=== PATIENT | female | born 1930 | race Caucasian/White ===

== ENCOUNTER 2017-05-07 23:10 | Inpatient (IN) | payer MEDICARE ==
[~2017-05-07] VITALS: Ht 172.7 cm; Wt 68.1 kg
[~2017-05-07 23:10] MED LIST: ALBU8.5H2 IH; AMLO-39 PO; ASCO100089 PO; ATOR80TA PO; CALC-190 PO; FLUT9.9S NS; HYG25 PO; ISOS120T6 PO; LEVO50CA2 PO; LISI-571 PO; METO25TA99 PO; MONT10TA23 PO; MULT-666 PO; NITR0.4T SL; NORT10CA PO; PANT40TA3 PO; TRAM50TA2 PO; UBID100C25 PO
[2017-05-07 23:22] VITALS: BP 198/81; PULSE 90; RESP 16; O2SAT 94
[2017-05-08] VITALS (12 sets, daily range): BP systolic 155–173; BP diastolic 47–69; PULSE 61–83; RESP 16–20; O2SAT 95–100
--- NOTE | 2017-05-08 00:21 | ED.REPORT ---
HPI-Fever Date of Service May 08, 2017 ED Provider: Osmar Carvalho DO Patient is an 86 year old female with a history of [place] with multiple cardiac stents, CAD, CABG and hypertension who presents to the ED due to a fever. Associated symptoms include global weakness and difficulty walking due to the weakness. She also complains of constipation. The patient reports that she fell a month ago and has wounds on her right lower extremity that has been being taken care of 3x a week at wound care. The patient denies abdominal pain or diarrhea. Per the patient's , the patient was not this weak yesterday. Nursing Notes Stated Complaint: FEVER Chief Complaint: General Complaint Nursing Notes Reviewed: Yes Allergies: Coded Allergies: Sulfa (Sulfonamide Antibiotics) (Verified Allergy, Severe, 09/16/15) meclizine (Verified Allergy, Severe, 09/16/15) meperidine HCl (Verified Allergy, Severe, 09/16/15) Scheduled Amlodipine (Norvasc) 5 Mg Tablet 5 MG PO DAILY Ascorbic Acid (Vitamin C) 1,000 Mg Tab.chew 1,000 MG PO HS Atorvastatin (Lipitor) 80 Mg Tablet 80 MG PO DAILY Calcium Carb&Cit/Mag12/Vit D3 (Calcium 500 mg Tablet) 1 Each Tablet 1 EACH PO DAILY Chlorthalidone (Chlorthalidone) 25 Mg Tablet 25 MG PO HS Isosorbide MN ER (Isosorbide MN ER) 120 Mg Tab.er.24h 120 MG PO DAILY Levothyroxine (Tirosint) 50 Mcg Capsule 50 MCG PO DAILY Lisinopril (Lisinopril) 5 Mg Tablet 10 MG PO DAILY Metoprolol Succinate ER (Metoprolol Succinate ER) 25 Mg Tab.er.24h 25 MG PO DAILY Montelukast (Montelukast) 10 Mg Tablet 10 MG PO HS Nortriptyline (Nortriptyline) 10 Mg Capsule 20 MG PO QID Pantoprazole DR (Pantoprazole DR) 40 Mg Tablet.dr 40 MG PO DAILY Ubidecarenone (Co Q-10) 100 Mg Capsule 100 MG PO DAILY Scheduled PRN Albuterol HFA (Proair HFA) 8.5 Gm Hfa.aer.ad 2 PUFFS IH Q4-6H PRN PRN For Shortness of Breath Nitroglycerin SL (Nitrostat) 0.4 Mg Tab.subl 0.4 MG SL Q5MIN PRN PRN For Chest Pain Tramadol (Tramadol) 50 Mg Tablet 25 MG PO Q6 PRN PRN For Pain Miscellaneous Medications Fluticasone Propionate (Flonase Allergy Relief) 50 Mcg/Actuation Huntley.susp 9.9 ML NS Multivitamin (Once Daily) 1 Each Tablet 1 EACH PO General Time Seen by MD: 00:20 Chief Complaint Recent fever Hx Obtained From: Patient Arrived By: Walk-in Onset Occurred: 5 - 8 hours ago Recent Healthcare: No recent hospitalization, Recent doctor visit Similar Sx Previous: No Past Medical History Past Medical History Unstable angina, status post left heart catheterization, status post drug-coated stent placement to the right coronary artery February 2014 Chronic anemia. Chronic renal insufficiency. Reports: Coronary artery disease, GERD, Hyperlipidemia, Hypertension Past Surgical History Multiple cardiac stents (8) Reports: CABG Family History Reviewed, not relevant Smoking History Former Smoker Social History Alcohol Use: Denies alcohol use Drug Use: Denies drug use Other Social History: Ambulatory Status Cane Review of Systems Constitutional: Reports: Chills, Fever, Weakness - generalized Respiratory: Denies: Non-productive cough, Shortness of breath GI: Reports: Constipation, Denies: Abdominal pain, Diarrhea Neurologic: Reports: Problem walking, Denies: Numbness Complete sys rev & neg: except as marked. Physical Exam Initial Vital Signs Vital Signs (First) Date Time Temp Pulse Resp B/P Pulse Ox O2 Delivery O2 Flow Rate FiO2 05/07/17 23:22 37.4 90 16 198/81 94 Room Air Initial VS: Reviewed General/Constitutional: Awake, Alert globally weak Neck: Atraumatic, Supple Respiratory / Chest: Atraumatic, No respiratory distress rales in the left upper chest Cardiovascular: Heart rate NL, Regular rhythm systolic ejection murmur Skin: Atraumatic, Color NL, No rash, Warm, Dry Neurologic: Oriented X3, Speech NL, No motor deficits, No sensory deficits Abdomen: Atraumatic, Soft, Non-tender LOWER EXTREMITIES: healing wounds on lower extermity, no signs of cellulitis Psychiatric: Affect NL, Mood NL Interpretation & Diagnostics Lab Results Interpretation Result Diagram: 05/08/17 0056 05/08/17 0056 Test 05/08/17 00:56 05/08/17 01:35 White Blood Count 22.3th/mm3 (3.8-10.1) Red Blood Count 3.61mil/mm3 (3.90-5.20) Hemoglobin 10.9g/dL (12.0-15.6) Hematocrit 32.3% (35.0-46.0) Mean Corpuscular Volume 89.5fL (81-100) Mean Corpuscular Hemoglobin 30.2pg (27.0-35.0) Mean Corpuscular Hemoglobin Concent 33.7% (32.0-37.0) Red Cell Distribution Width 16.4% (12.3-15.4) Platelet Count 237bil/L (150-400) Neutrophils (%) (Auto) 90.0% (40-74) Lymphocytes (%) (Auto) 2.3% (14-46) Monocytes (%) (Auto) 6.8% (4-12) Eosinophils (%) (Auto) 0.1% (0-5) Basophils (%) (Auto) 0.1% (0-3) Sodium Level 125mEq/L (134-144) Potassium Level 3.2mEq/L (3.5-5.2) Chloride Level 85mEq/L (97-108) Carbon Dioxide Level 20mmol/L (18-29) Blood Urea Nitrogen 20mg/dL (8-27) Creatinine 1.02mg/dL (0.57-1.00) Estimat Glomerular Filtration Rate 73mL/min (>59) Glucose Level 138mg/dL (60-99) Lactic Acid Level 1.5mmol/L (0.4-2.0) Calcium Level 9.3mg/dL (8.5-10.1) Magnesium Level 1.6mg/dL (1.6-2.6) Total Bilirubin 0.4mg/dL (0.0-1.2) Aspartate Amino Transf (AST/SGOT) 32U/L (0-50) Alanine Aminotransferase (ALT/SGPT) 18U/L (0-32) Alkaline Phosphatase 92U/L (25-165) Troponin T 0.018ug/L (0.0-0.011) Pro-B-Type Natriuretic Peptide 1145pg/mL (0-738) Total Protein 8.6g/dL (6.4-8.4) Albumin 3.8g/dL (3.4-5.0) Lipase 22U/L (13-60) Procalcitonin 0.41ng/mL (0.00-0.08) Urine Color Yellow (YELLOW) Urine Appearance Clear (CLEAR,HAZY) Urine pH 6.0 (5.0-8.0) Urine Specific [place] 1.010 (1.003-1.035) Urine Protein Negativemg/dL (NEG,TRACE) Urine Glucose (UA) Negativemg/dL (NEGATIVE) Urine Ketones Negativemg/dL (NEGATIVE) Urine Occult Blood Small (NEGATIVE) Urine Nitrite Negative (NEGATIVE) Urine Bilirubin Negative (NEGATIVE) Urine Urobilinogen Normalmg/dL (NORMAL) Urine Leukocyte Esterase Negative (NEGATIVE) Urine RBC 3-10/hpf (0-2) Urine WBC 0-5/hpf (0-5) Urine Epithelial Cells Occasional/hpf (NONE-MOD) Urine Crystals None seen (NONE SEEN) Urine Bacteria None/hpf (NONE-FEW) Urine Hyaline Casts None/lpf (NONE) Urine Granular Casts None seen (NONE SEEN) Urine Waxy Casts None seen (NONE SEEN) Urine Red Blood Cell Casts None seen (NONE SEEN) Urine White Blood Cell Casts None seen (NONE SEEN) Urine Mucus None seen (None Seen) Urine Trichomonas None seen (NONE SEEN) Urine Yeast None (NONE SEEN) Urinalysis Comment None Urine Culture Reflexed Not indicated ECG Interpretation ECG Interpretation: T wave inversion in V4, V5 and V6 no prior EKG for comparison Interpreted by: ED physician Normal ECG Interpretation: Normal rate (90), Normal sinus rhythm X-Ray Chest Interpretation Chest Xray Interpretation: left retrocardiac infiltrate View: Portable, 1 view Interpretation / Wet Read by: Wet read ED physician Re-Eval/Medical Decision Med Decision/Clinical Course This is an acutely ill 78-year-old female who presents with a 102.7 fever and global weakness. She was so weak that he literally had to lift her from a wheelchair and put her into the gurney. She is found have crackles in left base and diffuse global weakness. She has a healing wound of her right anterior carlos and this certainly did not look infected. Sepsis workup was initiated. EKG was sinus tachycardia. T wave inversion laterally but no ST depression or ST elevation. White blood cell count is markedly elevated at 22, 000. Pro-calcitonin elevated at 0.41 troponins elevated. Chest x-ray is suspicious for a left-sided pneumonia. She is hypokalemic with a potassium of roughly 3 and hyponatremia with a sodium in the 120s. Plan: IV antibiotics for healthcare associated pneumonia because she lives in some sort of progressive care facility. IV fluid resuscitation, potassium replacement and careful sodium replacement. Aspirin for the non-STEMI and trend her enzymes. She is completely pain-free so I expect that this is a stress related event. Plan for progressive care admission. Re-Evaluation/Progress : Time of Eval: 01:56 Re-Evaluation/Progress Note: Discussed results and plan for admit. Patient understands and agrees to plan. All questions were addressed. Counseled Regarding: Diagnosis, Lab results, Need for admission Discharge & Departure Impression: Primary Impression: Pneumonia Pneumonia type: due to unspecified organism Laterality: left Lung location : unspecified part of lung Qualified Code: J18.9 - Pneumonia, unspecified organism Additional Impressions: NSTEMI (non-ST elevated myocardial infarction) Hyponatremia Hypokalemia Weakness Leukocytosis Leukocytosis type: unspecified Qualified Code: D72.829 - Elevated white blood cell count, unspecified Disposition: ADMITTED TO HOSPITAL Discharge Condition All VS Reviewed: Yes Condition: Stable Referrals: Wallace Hitchcock MD (PCP) Donald Attestation Portions of this note were transcribed by Adrienne Dempsey. I, Dr. Carvalho personally performed the history, physical exam and medical decision-making; I reviewed and confirmed the accuracy of the information in the transcribed note. Signed by: Donald Goodwin, 05/08/17 and 0100 copies to: Wallace Hitchcock MD, Todd P DO May 08, 2017 00:21 Keira Dempsey May 08, 2017 00:34
[2017-05-08 01:06] LABS: BASOPHILS % (AUTO) 0.1 % (0-3); EOSINOPHILS % (AUTO) 0.1 % (0-5); MONOCYTES % (AUTO) 6.8 % (4-12); Mean Corpuscular Hemoglobin 30.2 pg (27.0-35.0); Mean Corpuscular Volume 89.5 fL (81-100); Platelet Count 237 bil/L (150-400)
[2017-05-08] MEDS ORDERED: Piperacillin-Tazo 3.375 Gm Inj 3.375 GM in Dextrose 5% Minibag Plus 50 ML IV ONE (01:15)
[2017-05-08 01:49] LABS: APPEARANCE,URINE CLEAR (CLEAR,HAZY); COLOR,URINE YELLOW (YELLOW); OCCULT BLOOD,URINE SMALL (NEGATIVE); UROBILINOGEN,URINE NORMAL (NORMAL)
[2017-05-08 01:55] LABS: Magnesium 1.6 mg/dL (1.6-2.6); TROPONIN T 0.018 ug/L (0.0-0.011)
[2017-05-08] MEDS ORDERED: levoFLOXacin Inj 750 MG in IV Premix 1 EACH IV ONE (02:05)
[2017-05-08] MEDS ORDERED: Potassium Chloride Inj 20 MEQ in Dextrose 5% 250 ML IV ONE (02:05)
[2017-05-08] MEDS ORDERED: 0.9% Sodium Chloride 1,000 ML IV ONE (02:10)
[2017-05-08] MEDS ORDERED: Potassium Chloride 20 mEq/15 mL 15mL Oral Soln PO ONE (02:15)
[2017-05-08] MEDS ORDERED: Ondansetron 2 mg/mL 2 mL Inj IVPUSH PRN ×2 (03:00→03:15)
[2017-05-08] MEDS ORDERED: Alum-Mag Hydrox-Simeth 30 mL Suspension PO PRN ×2 (03:00→03:15)
[2017-05-08] MEDS ORDERED: Polyethylene Glycol (PEG) 17 Gm Powder PO PRN (03:15)
[2017-05-08] MEDS: 0.9% Sodium Chloride 1,000 ML IV SCH ×2 (04:04→12:26)
--- NOTE | 2017-05-08 04:36 | PCM.HPMED ---
Subjective Date of Service May 08, 2017 Primary Provider: Admitting Physician: Anjana Rosa DO Primary Care Physician: Wallace Hitchcock MD Attending Physician: Anjana Rosa DO Chief Complaint: Weakness History of Present Illness: Pt is a 86y/o female with past medical history of CKD, DMT2, Afib, CAD with previous CABG and stents X8, and h/o DVTs presented to the ED with weakness with associated chills onset yesterday afternoon. Pt was sitting on porch yesterday afternoon when she began to have chills and "did not feel right ". Pt is a resident at [facility] and lives with her . Family is at bedside and states she "felt warm" yesterday, but denies any recorded temperature. Patient denies any fevers, cough, nausea, vomiting, or diarrhea. Reports she has constipation, for which she takes Miralax. Patient has had no recent sick contacts. Pt normally ambulates with a walker at baseline. In ED patient was given Zosyn 3.375mg IV, NS fluids, and KCl 40meq PO due to potassium of 3.2. Patient is admitted to medicine team for probable pneumonia with a leukocyte count of 22. Review of Systems: ROS is negative unless otherwise noted above. Allergies Coded Allergies: Sulfa (Sulfonamide Antibiotics) (Verified Allergy, Severe, 09/16/15) meclizine (Verified Allergy, Severe, 09/16/15) meperidine HCl (Verified Allergy, Severe, 09/16/15) Home Medications Cymbalta 60mg QD Lyrica 50mg TID Amlodipine 5mg QD Atorvastatin 10mg QD Chlorthalidone 25mg QD Isosorbide ER 120mg QD Lisinopril 10mg QD Metoprolol Succinate 50mg 1/2tab BID Montelukast 10mg QD Nortriptyline HCl 10mg x2 QD Pantoprazole 40mg BID PMH CAD, Constipation, Anemia, CKD Stage III, Anemia, Primary osteoarthritis, Essential HTN, CABG with stents x8, A fib, Cataracts, CHF, Diverticulitis, GERD , recurrent UTIs, Hyperlipidemia Surgical History CABG stents x8, Hysterectomy, Breast Biopsy, Bladder Suspension Social History Hx Alcohol Use: Yes (Occasional) Hx Substance Use: No Hx Tobacco Use: No Smoking Status: Former Smoker Living Arrangement: with Family (at [facility]) Exam Vital Signs Vital Sign - Last Date Time Temp Pulse Resp B/P Pulse Ox O2 Delivery O2 Flow Rate FiO2 05/08/17 03:24 37.1 74 19 172/69 97 Room Air Intake and Output 05/07/17 05/07/17 05/08/17 Cumulative From/Thru 15:00 23:00 07:00 05/07/17 23:22 - 05/08/17 03:23 Intake Total 1000 ml 1000 ml Balance 1000 ml 1000 ml Intake IV Total 1000 ml 1000 ml Exam Patient is a pleasant 86y/o female in no acute distress who is cooperative and conversive HEENT: EOMI, Moist oral mucosa NECK: supple and nontender CARDIOVASCULAR: RRR without murmur, no edema LUNGS: clear to auscultation, no wheeze, rales, or rhonchi ABDOMEN: soft nontender MUSCULOSKELETAL: Moves all four extremities appropriately NEURO: No focal deficits; SKIN: Warm, dry PSYCH: Appropriate mood and affect Lab and Diagnostics Labs UA Protein negative Glucose negative Bacteria Negative Occult Blood small amount Result Diagram: 05/08/17 0056 05/08/17 0056 Assessment & Plan Pt is a 86y/o female with past medical history of CKD, DMT2, Afib, CAD with previous CABG and stents X8, and h/o DVTs presented to the ED with weakness with associated chills onset yesterday afternoon. Patient is admitted to medicine team for probable pneumonia with a leukocyte count of 22. Hospital Day 1 1. Leukocytosis, acute, present on admission. Under evaluation -On admit: WBC 22.3; PCT 0.41 -In ED, given Zosyn, Levaquin; will continue with ceftriaxone, azithro, vanco -CXR suggestive of PNA; also consider infection secondary to lower extremity wounds -Blood Cx obtained; pending -Strep pneu Ag, Legionella Ag, Resp PCR, sputum Cx, MRSA screen ordered; repeat PCT -2VW CXR if patient tolerates in am with assistance -Treat underlying cause(s) 2. Hypokalemia, chronicity unknown, present on admission. Under evaluation -On admit: K 3.2 -40mEq given in ED -Monitor, am labs -Replace prn 3. Atrial fibrillation not on snf anticoagulation, chronic. Presumed stable -Evidenced on EKG on admission -Tele/monitor -Resume home meds: ASA, CCB, beta virgilio 4. Asymptomatic euvolemic hyponatremia, chronicity unknown, present on admission. Under evaluation -On admit: Na 125; [employer] 12/2016 Na 134 -May be secondary to duloxetine -Monitor for sx; consider cessation of SSRI 5. Elevated troponin, likely acute, present on admission. Monitor -On admit: 0.018 -May be secondary to underlying infection, CKD, cardiac demand ischemia -Trend - 6. Hypertension, chronic. Active -Elevated reading in ED: 198/81; trended down to 161/47 -Increase likely secondary to suspected underlying illness, anxiety -Monitor and resume home medications 7. Chronic kidney disease. Presumed stable -On admit: Cr 1.02; [employer] 12/2016 Cr 1.11; baseline approx. 1.1-1.2 -Monitor 8. CAD s/p CABG, chronic. Presumed stable -ECHO 08/2014: EF55, LV normal size/function; RV normal size/function; LA dilated; mild-mod MR, mild AR -Continue home statin, beta virgilio, ASA, CCB 9. Bilateral lower extremity neuropathy, chronic. Presumed stable -Pt followed by [facility] rheumatology, neurology -Known h/o polio, OA, motor neuropathy, venous insufficiency, spinal stenosis -Resume home dose Lyrica -PT evaluation 10. Diabetes mellitus, type 2 non-insulin using, chronic. Presumed stable -A1c 08/2015: 6.3 -Due to pts age, risk of hypoglycemic events, and unlikelihood of progression of secondary effects, no medications ordered at this time -Encourage healthy diet 11. Constipation, chronic. Presumed stable -Schedule softeners/bowel meds DVT: Heparin q8 SQ GI: None Diet: Heart healthy PRN: Fever/bowel/pain/nausea IVF: NS 100 Code: DNR/DNIPt family agrees to provide POLST in am Patient status: Due to presenting symptoms, risk of adverse events, and likely course of care, anticipated LOS > 2 midnights; pt admitted as inpatient status Simón Delgadillo DO May 08, 2017 04:13 Josy Dawkins DO May 08, 2017 04:14
[2017-05-08] MEDS ORDERED: cefTRIAXone Inj 2,000 MG in Dextrose 5% Minibag Plus 50 ML IV SCH (05:00)
--- NOTE | 2017-05-08 05:56 | NUR ---
Admission note Pt arrived from ER to [facility] # [id number] apporx at 0320. Admission assessment and screening completed. No acute distress noted. POC discussed and reviewed with pt and spouse. They verbalize understating. No overt complications noted.
--- NOTE | 2017-05-08 06:00 | NUR ---
[facility] She has chronic venous stasis ulcers to LE. She has right lateral carlos open area. Mepilex foam border dressing applied. Wound consult ordered.
[2017-05-08] MEDS: Vancomycin Inj 1,000 MG in IV Premix 1 EACH IV SCH (06:39)
--- NOTE | 2017-05-08 06:47 | PCM.CONPHA ---
Subjective Date of Service: May 08, 2017 Requesting Provider: Simón Delgadillo DO Weakness History of Present Illness possible pneu, and infection of lower extremity wounds Reason for Pharmacy Consult: Vancomycin Dosing Objective Assessment/Plan Assessment/Plan A/ - 86 y/o female patient admitted in for suspected pneumonia and infection of lower extremity wounds that required Vancomycin therapy for empirical coverage - Afebrile, WBC: 22.3, Blood cultures (x2), MRSA screen, sputum, virus PCR pending - In Ed, she received Zosyn and Levaquin once, then switched to Rocephin and azithromycin po - Wt: 74.6kg, ht: 172.7cm, SCr: 1.02 mg/dL (CKD stage III @ baseline), estimated clearance ~ 40 ml/min, t1/2~18 hrs, Vd~48 L P/ - Give Vancomycin 1G iv q24h, no loading dose. Trough level ordered before 3rd dose @0430 on 05/10 Pharmacy will continue to monitor and make necessary adjustment Thank you for consulting clinical pharmacy in the care of this patient Cory Muro May 08, 2017 06:47
[2017-05-08] MEDS: DULoxetine 30 mg DR Capsule PO SCH (08:26)
[2017-05-08] MEDS: MeTOProlol XL 25 mg ER24 Tablet PO SCH ×2 (08:26→21:38)
[2017-05-08] MEDS: Isosorbide Mononitrate 60 mg ER24 Tablet PO SCH (08:26)
[2017-05-08] MEDS: Heparin 5,000 Unit/mL Inj SUBQ SCH ×3 (08:26→23:43)
[2017-05-08] MEDS ORDERED: Vancomycin Dose per Pharmacist XX SCH (08:30)
[2017-05-08 08:49] LABS: BASOPHILS % (AUTO) 0.1 % (0-3); EOSINOPHILS % (AUTO) 0 % (0-5); MONOCYTES % (AUTO) 5.9 % (4-12); Mean Corpuscular Hemoglobin 29.6 pg (27.0-35.0); Mean Corpuscular Volume 88.8 fL (81-100); NEUTROPHILS % (AUTO) 89.8 % (40-74); Platelet Count 183 bil/L (150-400)
[2017-05-08 09:08] LABS: INR 1.01 ratio
--- NOTE | 2017-05-08 10:15 | DRSVH ---
PROCEDURE: X-RAY CHEST ONE VIEW, PORTABLE ([id number]) INDICATIONS: fever, unable to bear weight due to weakness TECHNIQUE: One view of the chest was acquired. COMPARISON: [facility], CR, XR CHEST 1VW (PORTABLE), 09/15/2015, 11:03. FINDINGS: Surgical changes and devices: Postsurgical changes are redemonstrated in the mediastinum. Lungs and pleura: There is blunting of the left costophrenic angle again noted consistent with a quality assurance monitor chassis misha small pleural effusion versus pleural thickening. There are linear opacities in the lung bases l ikely representing atelectasis. Mediastinum: A moderate-sized hiatal hernia is is redemonstrated. Heart size is enlarged. Bones and chest wall: No suspicious bony lesions. Overlying soft tissues appear unremarkable. IMPRESSION: 1. Blunting of the left costophrenic angle consistent with a chronic pleural effusion versus pleural thickening. 2. Bibasilar linear opacities likely representing atelectasis. 3. Moderate size hiatal hernia again noted. Dictated by: Hu Yen M.D. on 05/08/2017 at 10:06 Approved by: Hu Yen M.D. on 05/08/2017 at 10:08
--- NOTE | 2017-05-08 15:54 | NUR ---
Social Work: Multidisciplinary Rounds Pt discussed in am rounds. Pt is not medically stable for discharge at this time. Pt lives in [place] at [facility]. Unknown if pt is in the independent or assisted living side. Order placed to coordinate with [facility]. ENTEROSTOMAL THERAPY NURSE acknowledges MD order however Case management will not see the patient today due to high census. Will attempt to complete assessment tomorrow. ROYAL Thapa
--- NOTE | 2017-05-08 17:00 | NUR ---
Activity Patient able to assist with turns. Has not ambulated yet. Denies any pain when turning. Performs active ROM exercises.
[2017-05-08] MEDS ORDERED: Potassium Chloride 20 mEq SR Tablet PO ONE (19:20)
[2017-05-08] MEDS ORDERED: Magnesium Sulf 2 Gm/50mL Water 2 GM in IV Premix 1 EACH IV ONE (19:20)
--- NOTE | 2017-05-08 19:25 | PCM.PNMED ---
Subjective Date of Service May 08, 2017 Subjective Ms. Rocio Willson is a very pleasant 86 year old lady with past medical history of CKD, DMT2, Afib, CAD with previous CABG and stents X8, and h/o DVTs presented to the ED with weakness with associated chills onset yesterday afternoon. Pt was sitting on porch yesterday afternoon when she began to have chills and "did not feel right". Pt is a resident at [facility] and lives with her . Family is at bedside and states she "felt warm" yesterday, but denies any recorded temperature. Patient denies any fevers, cough, nausea, vomiting, or diarrhea. Reports she has constipation, for which she takes Miralax. Patient has had no recent sick contacts. Pt normally ambulates with a walker at baseline. In ED patient was given Zosyn 3.375mg IV, NS fluids, and KCl 40meq PO due to potassium of 3.2. Patient is admitted to medicine team for probable pneumonia with a leukocyte count of 22. Overnight -no overnight events. Today - Patient feels great! Denies all symptoms. Has no complaints. Exam Vital Signs Vital Sign - Last Date Time Temp Pulse Resp B/P Pulse Ox O2 Delivery O2 Flow Rate FiO2 05/08/17 05:21 71 05/08/17 03:24 37.1 19 172/69 97 Room Air Intake and Output 05/07/17 05/07/17 05/08/17 Cumulative From/Thru 15:00 23:00 07:00 05/07/17 23:22 - 05/08/17 06:04 Intake Total 1324 ml 1324 ml Output Total 100 ml 100 ml Balance 1224 ml 1224 ml Intake Oral 0 ml 0 ml IV Total 1324 ml 1324 ml Output Urine Total 100 ml 100 ml # Voids 1 1 # Bowel Movements 0 0 Exam General: No acute distress, well-developed, well-nourished, appropriately interactive HEENT: Normocephalic, atraumatic. External ears without defect. Pupils equal, round, and reactive to light and accommodation. Anicteric sclerae, moist conjunctivae, and no lid lag. Oropharynx free of erythema and cobble stoning with moist mucosa. Neck: Supple with full range of motion. No jugular venous distension. No bruits. No lymphadenopathy or thyromegaly. Cardiovascular: Regular rate and rhythm with no murmurs, rubs, or gallops appreciated Pulmonary: Clear to auscultation bilaterally with no crackles, wheezes, or rhonchi. Normal respiratory effort with no use of accessory muscles. Abdomen: Bowel tones present. Soft, nontender, nondistended. No hepatosplenomegaly or masses appreciated. Extremities: No clubbing, cyanosis, edema, or lymphadenopathy appreciated. Skin: Normal temperature, turgor, and texture; no rash, Right lower extremity ulcer with superficial oozing present, or subcutaneous nodules appreciated. Neurological: Cranial nerves grossly intact. Normal muscle strength, tone, and bulk. Reflexes, coordination, and sensory function within normal limits. No known gait impairment. Psychiatric: Normal mood and affect. Alert and oriented to person, place, and time. IVs and Medications Medications Reviewed: Medications were reviewed in detail Lab and Diagnostics Result Diagram: 05/08/17 0056 05/08/17 0056 Assessment & Plan Pt is a 86y/o female with past medical history of CKD, DMT2, Afib, CAD with previous CABG and stents X8, and h/o DVTs presented to the ED with weakness with associated chills onset yesterday afternoon. Pt was sitting on porch yesterday afternoon when she began to have chills and "did not feel right ". Pt is a resident at [facility] and lives with her . Family is at bedside and states she "felt warm" yesterday, but denies any recorded temperature. Patient denies any fevers, cough, nausea, vomiting, or diarrhea. Reports she has constipation, for which she takes Miralax. Patient has had no recent sick contacts. Pt normally ambulates with a walker at baseline. Leukocytosis, acute, present on admission. Under evaluation - On admit: WBC 22.3; with 90% diff. - In ED, given Zosyn, Levaquin; received vanc, ceftriaxone and azithro. Will switch to Vanc / Zosyn. - CXR suggestive of PNA; also consider infection secondary to lower extremity wounds - Blood Cx obtained; pending - Strep pneu Ag, Legionella Ag, Resp PCR, sputum Cx, MRSA screen ordered; all negative or pending. - Will cx RLE wound tomorrow. - Procalcitonin 0.41, and 0.97 on repeat. Hypokalemia, chronicity unknown, present on admission. Active. - On admit: K 3.2, Mag 1.6. - Replete as needed. Atrial fibrillation not on fdc anticoagulation, chronic. Presumed stable -Evidenced on EKG on admission -Tele/monitor -Resume home meds: ASA, CCB, beta virgilio Asymptomatic euvolemic hyponatremia, chronicity unknown, present on admission. Under evaluation -On admit: Na 125; NextGen 12/2016 Na 134 -May be secondary to duloxetine -Monitor for sx; consider cessation of SSRI Elevated troponin, likely acute, present on admission. Monitor -On admit: 0.018 -May be secondary to underlying infection, CKD, cardiac demand ischemia -Trend - Hypertension, chronic. Active -Elevated reading in ED: 198/81; trended down to 161/47 -Increase likely secondary to suspected underlying illness, anxiety -Monitor and resume home medications Chronic kidney disease. Presumed stable -On admit: Cr 1.02; NextGen 12/2016 Cr 1.11; baseline approx. 1.1-1.2 -Monitor CAD s/p CABG, chronic. Presumed stable -ECHO 08/2014: EF55, LV normal size/function; RV normal size/function; LA dilated; mild-mod MR, mild AR -Continue home statin, beta virgilio, ASA, CCB Bilateral lower extremity neuropathy, chronic. Presumed stable -Pt followed by [facility] rheumatology, neurology -Known h/o polio, OA, motor neuropathy, venous insufficiency, spinal stenosis -Resume home dose Lyrica -PT evaluation Diabetes mellitus, type 2 non-insulin using, chronic. Presumed stable -A1c 08/2015: 6.3 -Due to pts age, risk of hypoglycemic events, and unlikelihood of progression of secondary effects, no medications ordered at this time -Encourage healthy diet Constipation, chronic. Presumed stable -Schedule softeners/bowel meds Patient status: Due to presenting symptoms, risk of adverse events, and likely course of care, anticipated LOS > 2 midnights; pt admitted as inpatient status Pain Evaluation: Adequate Pain Control Resuscitation Status: DNR/DNI:Do Not Resuscitate/Intubate Attending Statement The patient was seen and examined together with Dr. Mcclelland on 05/08/2017 and I agree with the history, exam and plan as outlined in the note above. . MCCREFUGIO PARK DO May 08, 2017 06:29 Edmund Liang MD May 09, 2017 09:21
[2017-05-08] MEDS ORDERED: PREG50CA PO (19:51)
[2017-05-08] MEDS ORDERED: DULO60CA42 PO (19:51)
[2017-05-08] MEDS: Piperacillin-Tazo 3.375 Gm Inj 3.375 GM in Dextrose 5% Minibag Plus 50 ML IV SCH (21:39)
[2017-05-09] VITALS (7 sets, daily range): BP systolic 134–182; BP diastolic 63–74; PULSE 60–86; RESP 16–20; O2SAT 96–99
[2017-05-09] MEDS: 0.9% Sodium Chloride 1,000 ML IV SCH ×2 (00:57→09:14)
[2017-05-09 03:45] LABS: BASOPHILS % (AUTO) 0.1 % (0-3); EOSINOPHILS % (AUTO) 3.8 % (0-5); Mean Corpuscular Hemoglobin 29.5 pg (27.0-35.0); Mean Corpuscular Volume 87.7 fL (81-100); NEUTROPHILS % (AUTO) 78.5 % (40-74); Platelet Count 198 bil/L (150-400)
[2017-05-09] MEDS: Vancomycin Inj 1,000 MG in IV Premix 1 EACH IV SCH (04:07)
[2017-05-09] MEDS ORDERED: Potassium Chloride Inj 20 MEQ in Dextrose 5% 250 ML IV ONE (05:05)
[2017-05-09] MEDS: Piperacillin-Tazo 3.375 Gm Inj 3.375 GM in Dextrose 5% Minibag Plus 50 ML IV SCH ×3 (05:30→20:39)
--- NOTE | 2017-05-09 06:03 | NUR ---
potassium/magnesium at start of shift order to give 2gm IV rider of mag and 20mEq KCL po, gave this morning labs potassium 3.0 called MD about maybe starting magnesium/potassium protocol ordered 20mEq IV potassium instead, IV rider running.
--- NOTE | 2017-05-09 06:04 | NUR ---
pain pt c/o pain in her back and legs, tylenol, elevation, repostiting and ice helping to control pain
[2017-05-09] MEDS: Isosorbide Mononitrate 60 mg ER24 Tablet PO SCH (07:30)
[2017-05-09] MEDS: DULoxetine 30 mg DR Capsule PO SCH (10:06)
[2017-05-09] MEDS: MeTOProlol XL 25 mg ER24 Tablet PO SCH ×2 (10:06→20:38)
[2017-05-09] MEDS: Heparin 5,000 Unit/mL Inj SUBQ SCH ×3 (10:12→23:50)
[2017-05-09] MEDS ORDERED: NS IV SCH ×2 (10:30)
[2017-05-09] MEDS ORDERED: VANCOMYCIN IV SCH ×2 (10:30)
[2017-05-09] MEDS ORDERED: Potassium Chloride Inj 30 MEQ in Dextrose 5% 500 ML IV ONE (10:45)
[2017-05-09] MEDS ORDERED: Heparin 5,000 Unit/mL Inj SUBQ SCH (10:50)
--- NOTE | 2017-05-09 11:21 | NUR ---
Social Work: Initial Assessment/Multidisciplinary Rounds D/A: EMR reviewed. Pt was discussed in AM rounds this morning. Pt is low risk for readmission with risk score of 1. Rocio Melchor is a 86 year old female admitted on05/08/2017 for pneumonia and weakness. Per MD in Multidisciplinary rounds, pt is getting closer to being medically ready for discharge. SW met with pt at bedside to discuss discharge planning, SW role explained and Discharge Planning Checklist booklet provided. Pt has [facility] [place] [employer] insurance and sees Wallace Hitchcock MD for primary care. Pt lives at [facility] where she is independent with ADL's but she and her do receive meals from the community and have someone help with cleaning around the house. Pt drives and uses a FWW for ambulation at baseline. Per Pt, she has not been out of bed during this hospitalization but plans to ambulate with RN today. SW does not have HH or SNF hx. Pt does not have VA benefits but does have LTC insurance. Pt has DPOA/AD paperwork completed. SW requested a copy when possible. SW spoke with Rodney from [facility] who confirmed that pt is on the independent side of the facility and does not require a bedside assessment to return. Pt explained her son will transport her back to [facility] when medically ready. Pt denies any other needs. No MD orders at this time. SW to continue to follow for pt needs or MD orders. Plan: Anticipated discharge home to [facility] when medically ready. Pt denies any other needs. No MD orders at this time. SW to continue to follow for pt needs or MD orders. ROYAL Zuleta Addendum: 05/09/17 at 1129 by LINDA JOHNSON Amended: Links added.
[2017-05-09] MEDS ORDERED: Potassium Chloride 20 mEq SR Tablet PO ONE (14:50)
--- NOTE | 2017-05-09 15:59 | NUR ---
HTN Blood pressure 170's systolic. MD notified. Increased back pain, giving PO tylenol. Potassium 3.0, giving potassium rider slowly r/t burning at IV site.
--- NOTE | 2017-05-09 17:19 | NUR ---
Wound Note Wound orders for right lower leg wound received, pt seen at bedside. Patient has a history of venous stasis and was referred to wound center by Bhumi COTTON but was hospitalized for other reasons prior to that visit. Patient presents with a non healing right lateral leg ulcer, measuring 1.5 cm x 0.2 cm with a depth of 0.2 cm and tunnels superiorly 1.5 cm. Wound was cleaned with a curette and was then wrapped with kerlix and coban, will change dressing on Tuesday and patient will follow up at the wound center on discharge. Wound may need to be opened superiorly in the future.
--- NOTE | 2017-05-09 17:59 | PCM.PNMED ---
Subjective Date of Service May 09, 2017 Subjective Lalito Melchor is an 86 year old lady with past medical history of CKD, DMT2, Afib, CAD with previous CABG and stents X8, and h/o DVTs presented to the ED with weakness with associated chills onset on 05/07/17. Pt was sitting on porch yesterday afternoon when she began to have chills and "did not feel right ". Pt is a resident at [facility] and lives with her . Family is at bedside and states she "felt warm" yesterday, but denies any recorded temperature. Patient denies any fevers, cough, nausea, vomiting, or diarrhea. She is admitted to the hospital for the treatment of her pneumonia. Overnight Events: Low Potassium, replaced with potassium chloride. Today, Lalito is resting in bed comfortably and in no acute distress. She mentions she did have some shortness of breath and some left sided chest pain while lying down which lasted only a few minutes until she received pain medication. She has not had a repeat episode. She denies fevers, chills, headache, nausea, vomiting, abdominal pain or diarrhea. Exam Vital Signs Vital Sign - Last Date Time Temp Pulse Resp B/P Pulse Ox O2 Delivery O2 Flow Rate FiO2 05/09/17 16:09 36.6 72 20 182/67 99 Room Air Intake and Output 05/08/17 05/08/17 05/09/17 Cumulative From/Thru 15:00 23:00 07:00 05/07/17 23:22 - 05/09/17 06:16 Intake Total 1892 ml 2135 ml 5351 ml Output Total 100 ml Balance 1892 ml 2135 ml 5251 ml Intake Oral 800 ml 820 ml 1620 ml IV Total 1092 ml 1315 ml 3731 ml Output Urine Total 100 ml # Voids 2 5 7 15 # Bowel Movements 1 2 3 Exam General: No acute distress, well-developed, well-nourished, appropriately interactive HEENT: Normocephalic, atraumatic. External ears without defect. Anicteric sclerae, moist conjunctivae, and no lid lag. Oropharynx free of erythema and cobble stoning with moist mucosa. Neck: Supple with full range of motion. No jugular venous distension. No bruits. No lymphadenopathy or thyromegaly. Cardiovascular: Regular rate and rhythm with no murmurs, rubs, or gallops appreciated Pulmonary: Clear to auscultation bilaterally with no crackles, wheezes, or rhonchi. Normal respiratory effort with no use of accessory muscles. Abdomen: Bowel tones present. Soft, nontender, nondistended. No hepatosplenomegaly or masses appreciated. Extremities: No clubbing, cyanosis, edema, or lymphadenopathy appreciated. Skin: Normal temperature, turgor, and texture; no rash, Right lower extremity ulcer with superficial oozing present, or subcutaneous nodules appreciated. Neurological: Cranial nerves grossly intact. Normal muscle strength, tone, and bulk. Reflexes, coordination, and sensory function within normal limits. No known gait impairment. Psychiatric: Normal mood and affect. Alert and oriented to person, place, and time. Lab and Diagnostics Item Value Date Time Sodium Level 134 mEq/L 05/09/17 031 Potassium Level 3.0 mEq/L L 05/09/17 031 Potassium Level 3.3 mEq/L L 05/09/17 0830 Chloride Level 95 mEq/L L 05/09/17 031 Carbon Dioxide Level 22 mmol/L 05/09/17 0310 Blood Urea Nitrogen 12 mg/dL 05/09/17 0310 Creatinine 0.73 mg/dL 05/09/17 0310 Estimat Glomerular Filtration Rate 108 mL/min 05/09/17 0310 Glucose Level 109 mg/dL H 05/09/17 0310 Procalcitonin 0.96 ng/mL H 05/09/17 0310 Result Diagram: 05/09/1730905/09/17 0830 Microbiology MRSA - Not detected Strep Pneumo - Negative Legionella Negative Blood Cultures negative x 24 hours Microbiology ADENOVIRUS RESPIRATORY PCR Final 05/09/17 Not Detected CORONOVIRUS 229E Final 05/09/17 Not Detected CORONOVIRUS HKU1 Final 05/09/17 Not Detected CORONOVIRUS NL63 Final 05/09/17 Not Detected CORONOVIRUS OC43 Final 05/09/17 Not Detected INFLUENZA A PCR Final 05/09/17 Not Detected INFLUENZA B PCR Final 05/09/17 Not Detected METAPNEUMOVIRUS PCR Final 05/09/17 Not Detected RHINOVIRUS OR ENTEROVIRUS PCR Final 05/09/17 Not Detected PARAINFLUENZA 1 PCR Final 05/09/17-1201 Not Detected PARAINFLUENZA 2 PCR Final 05/09/17-1201 Not Detected PARAINFLUENZA 3 PCR Final 05/09/17-1201 Not Detected PARAINFLUENZA 4 PCR Final 05/09/17-1201 Not Detected CONTINUED ON NEXT PAGE RUN DATE: 05/09/17 [facility] LIVE PAGE 2 RUN TIME: 1203 Specimen Inquiry PHYSICIAN Patient: LALITO MELCHOR [id number] (Continued) Specimen: [id number] Collected: 05/09/17 Received: 05/09/17-1039 (Continued) Procedure Result Verified Site RESP SYNCYTIAL VIRUS PCR Final 05/09/17-1201 Not Detected Microbiology (Continued) CHLAMDOPHILIA PNEUMONIAE PCR Final 05/09/17-1201 Not Detected MYCOPLASMA PNEUMONIAE PCR Final 05/09/17-1201 MYCO PNEUMONIAE PCR Not Detected Reference Interval Not Detected X-Rays, CTs and MRIs PROCEDURE: X-RAY CHEST ONE VIEW, PORTABLE ([id number]) IMPRESSION: 1. Blunting of the left costophrenic angle consistent with a chronic pleural effusion versus pleural thickening. 2. Bibasilar linear opacities likely representing atelectasis. 3. Moderate size hiatal hernia again noted. Dictated and approved by: Hu Yen M.D. on 05/08/2017 at 10:06 12-lead ECG EKG 05/09/17 Normal sinus rhythm EKG 05/08/17 Atrial Fibrillation Assessment & Plan Pt is a 86y/o female with past medical history of CKD, DMT2, Afib, CAD with previous CABG and stents X8, and h/o DVTs presented to the ED with weakness with associated chills onset yesterday afternoon. Pt was sitting on porch yesterday afternoon when she began to have chills and "did not feel right ". Pt is a resident at [facility] and lives with her . Family is at bedside and states she "felt warm" yesterday, but denies any recorded temperature. Patient denies any fevers, cough, nausea, vomiting, or diarrhea. Reports she has constipation, for which she takes Miralax. Patient has had no recent sick contacts. Pt normally ambulates with a walker at baseline. Leukocytosis, acute, present on admission. Improving - On admit: WBC 22.3; with 90% diff. - In ED, given Zosyn, Levaquin; received vanc, ceftriaxone and azithro. Patient currently on zosyn. Vancomycin discontinued after negative MRSA swab. - CXR suggestive of PNA; also consider infection secondary to lower extremity wounds - Blood Cultures negative x 24 hours. - Strep pneu Ag, Legionella Ag, Resp PCR, MRSA all negative - RLE wound consult pending - Procalcitonin 0.41, and 0.97 on repeat. will monitor Hypokalemia, chronicity unknown, present on admission. Active. - On admit: K 3.2, Mag 1.6. - Replete as needed. Atrial fibrillation not on terminologist anticoagulation, chronic. Presumed stable Discussion with Dr. Stover, her distribution operations supervisor, revealed she is in normal sinus rhythm mostly. This is most likely secondary to her pneumonia. - Evidenced on EKG on admission - Tele/monitor - Resume home meds: ASA, CCB, beta virgilio - Repeat EKG showed normal sinus rhythm - Heparin for prophylaxis Asymptomatic euvolemic hyponatremia, chronicity unknown, present on admission. Improved - On admit: Na 125; NextGen 12/2016 Na 134 - May be secondary to duloxetine - Monitor for sx; consider cessation of SSRI - Improved to 134 on 05/09/17 Elevated troponin, likely acute, present on admission. Monitor - On admit: 0.018 - May be secondary to underlying infection, CKD, cardiac demand ischemia Hypertension, chronic. Active - Elevated reading in ED: 198/81; trended down to 161/47 - Increase likely secondary to suspected underlying illness, anxiety - Monitor and resume home medications Chronic kidney disease. Presumed stable - On admit: Cr 1.02; NextGen 12/2016 Cr 1.11; baseline approx. 1.1-1.2 - Monitor BMP CAD s/p CABG, chronic. Presumed stable - ECHO 08/2014: EF55, LV normal size/function; RV normal size/function; LA dilated; mild-mod MR, mild AR - Continue home statin, beta virgilio, ASA, CCB Bilateral lower extremity neuropathy, chronic. Presumed stable - Pt followed by [facility] rheumatology, neurology - Known h/o polio, OA, motor neuropathy, venous insufficiency, spinal stenosis - Resume home dose Lyrica - PT evaluation Diabetes mellitus, type 2 non-insulin using, chronic. Presumed stable - A1c 08/2015: 6.3 - Due to pts age, risk of hypoglycemic events, and unlikelihood of progression of secondary effects, no medications ordered at this time - Encourage healthy diet Constipation, chronic. Presumed stable -Schedule softeners/bowel meds Disposition: Likely discharge in 1-2 days depending on patient clinical status, breathing, atrial fibrillation and troponin Resuscitation Status: DNR/DNI:Do Not Resuscitate/Intubate Attending Statement The patient was seen and examined together with Dr. Anderson on 05/09/17 and I agree with the history, exam and plan as outlined in the note above. Valentin Anderson DO May 09, 2017 17:59 Jackie Galloway DO May 11, 2017 18:41
[2017-05-10] VITALS (8 sets, daily range): BP systolic 145–176; BP diastolic 57–72; PULSE 63–74; RESP 16–22; O2SAT 94–99
[2017-05-10 03:26] LABS: BASOPHILS % (AUTO) 0.2 % (0-3); MONOCYTES % (AUTO) 8.5 % (4-12); Mean Corpuscular Volume 89.2 fL (81-100); Platelet Count 213 bil/L (150-400)
[2017-05-10] MEDS: Piperacillin-Tazo 3.375 Gm Inj 3.375 GM in Dextrose 5% Minibag Plus 50 ML IV SCH ×3 (04:30→20:08)
[2017-05-10] MEDS ORDERED: Vancomycin Serum Trough XX ONE ×2 (04:30→20:30)
[2017-05-10] MEDS ORDERED: Potassium Chloride 20 mEq SR Tablet PO ONE (06:30)
[2017-05-10] MEDS: DULoxetine 30 mg DR Capsule PO SCH (08:01)
[2017-05-10] MEDS: MeTOProlol XL 25 mg ER24 Tablet PO SCH ×2 (08:01→20:08)
[2017-05-10] MEDS: Heparin 5,000 Unit/mL Inj SUBQ SCH ×3 (08:09→23:51)
[2017-05-10] MEDS ORDERED: KCL IV ONE (09:20)
[2017-05-10] MEDS ORDERED: D5W 40 MEQ IV ONE (09:20)
[2017-05-10] MEDS: Isosorbide Mononitrate 60 mg ER24 Tablet PO SCH (09:35)
--- NOTE | 2017-05-10 13:26 | PCM.PNMED ---
Subjective Date of Service May 10, 2017 Subjective Overnight Events: None Patient was seen and examined at bedside today. Lalito mentions feeling much better. She is not having any chest pain or shortness of breath. She denies nausea, vomiting, headache, dizziness, abdominal pain, diarrhea. She is having some constipation. She will work with PT today for ambulating. She is back in normal sinus rhythm Exam Vital Signs Vital Sign - Last Date Time Temp Pulse Resp B/P Pulse Ox O2 Delivery O2 Flow Rate FiO2 05/10/17 03:00 36.9 74 16 167/64 95 Room Air Intake and Output 05/09/17 05/09/17 05/10/17 Cumulative From/Thru 15:00 23:00 07:00 05/07/17 23:22 - 05/10/17 03:00 Intake Total 400 ml 5751 ml Output Total 100 ml Balance 400 ml 5651 ml Intake Oral 400 ml 2020 ml IV Total 3731 ml Output Urine Total 100 ml # Voids 3 18 # Bowel Movements 2 5 Exam General: No acute distress, well-developed, well-nourished, appropriately interactive HEENT: Normocephalic, atraumatic. External ears without defect. Anicteric sclerae, moist conjunctivae. Neck: Supple with full range of motion. No jugular venous distension. No bruits. No lymphadenopathy or thyromegaly. Cardiovascular: Regular rate and rhythm with no murmurs, rubs, or gallops appreciated Pulmonary: Clear to auscultation bilaterally with no crackles, wheezes, or rhonchi. Normal respiratory effort with no use of accessory muscles. Abdomen: Bowel tones present. Soft, nontender, nondistended. No hepatosplenomegaly or masses appreciated. Extremities: No clubbing or cyanosis, mild edema bilaterally in lower extremities. Skin: Normal temperature, turgor, and texture; no rash, Right lower extremity with coban wrapping, or subcutaneous nodules appreciated. Neurological: Cranial nerves grossly intact. Normal muscle strength, tone, and bulk. Reflexes, coordination, and sensory function within normal limits. No known gait impairment. Psychiatric: Normal mood and affect. Alert and oriented to person, place, and time. IVs and Medications Medications Reviewed: Medications were reviewed in detail Lab and Diagnostics Item Value Date Time Procalcitonin 0.75 ng/mL H 05/10/17 0245 Calcium Level 9.0 mg/dL 05/10/17 1420 Calcium Level 9.1 mg/dL 05/10/17244 Troponin T 0.010 ug/L 05/09/172022 Result Diagram: 05/10/1724405/10/17244 Microbiology MRSA - Not detected Strep Pneumo - Negative Legionella Negative Blood Cultures negative x 24 hours Microbiology ADENOVIRUS RESPIRATORY PCR Final 05/09/17-1201 Not Detected CORONOVIRUS 229E Final 05/09/17 Not Detected CORONOVIRUS HKU1 Final 05/09/17 Not Detected CORONOVIRUS NL63 Final 05/09/17 Not Detected CORONOVIRUS OC43 Final 05/09/17 Not Detected INFLUENZA A PCR Final 05/09/17 Not Detected INFLUENZA B PCR Final 05/09/17 Not Detected METAPNEUMOVIRUS PCR Final 05/09/17 Not Detected RHINOVIRUS OR ENTEROVIRUS PCR Final 05/09/17 Not Detected PARAINFLUENZA 1 PCR Final 05/09/17 Not Detected PARAINFLUENZA 2 PCR Final 05/09/17 Not Detected PARAINFLUENZA 3 PCR Final 05/09/17 Not Detected PARAINFLUENZA 4 PCR Final 05/09/17 Not Detected CONTINUED ON NEXT PAGE RUN DATE: 05/09/17 [facility] LIVE PAGE 2 RUN TIME: 1203 Specimen Inquiry PHYSICIAN Patient: LALITO SMITH [id number] (Continued) Specimen: [id number] Collected: 05/09/17 Received: 05/09/17 (Continued) Procedure Result Verified Site RESP SYNCYTIAL VIRUS PCR Final 05/09/17-1201 Not Detected Microbiology (Continued) CHLAMDOPHILIA PNEUMONIAE PCR Final 05/09/17 Not Detected MYCOPLASMA PNEUMONIAE PCR Final 05/09/17 MYCO PNEUMONIAE PCR Not Detected Reference Interval Not Detected X-Rays, CTs and MRIs PROCEDURE: X-RAY CHEST ONE VIEW, PORTABLE ([id number]) IMPRESSION: 1. Blunting of the left costophrenic angle consistent with a chronic pleural effusion versus pleural thickening. 2. Bibasilar linear opacities likely representing atelectasis. 3. Moderate size hiatal hernia again noted. Dictated and approved by: Hu Yen M.D. on 05/08/2017 at 10:06 12-lead ECG EKG 05/09/17 Normal sinus rhythm EKG 05/08/17 Atrial Fibrillation Assessment & Plan Pt is a 86y/o female with past medical history of CKD, DMT2, Afib, CAD with previous CABG and stents x8, and h/o DVTs presented to the ED with weakness with associated chills onset yesterday afternoon. Pt was sitting on porch yesterday afternoon when she began to have chills and "did not feel right ". Pt is a resident at [facility] and lives with her . Family is at bedside and states she "felt warm" yesterday, but denies any recorded temperature. Patient denies any fevers, cough, nausea, vomiting, or diarrhea. Reports she has constipation, for which she takes Miralax. Patient has had no recent sick contacts. Pt normally ambulates with a walker at baseline. Leukocytosis, acute, present on admission. Improving - On admit: WBC 22.3; with 90% diff. - In ED, given Zosyn, Levaquin; Patient is currently on zosyn. Vancomycin discontinued after negative MRSA swab. - CXR suggestive of PNA; wound care has been working with [facility] wound. - Blood Cultures negative x 48 hours - Strep pneu Ag, Legionella Ag, Resp PCR, MRSA all negative - Procalcitonin is downtrending Hypokalemia, chronicity unknown, present on admission. Active. - On admit: K 3.2, Mag 1.6. - Replete as needed. Atrial fibrillation not on rat exterminator anticoagulation, chronic. Presumed stable Discussion with Dr. Stover, her ceramic designer, revealed she is in normal sinus rhythm mostly. This is most likely secondary to her pneumonia. - Evidenced on EKG on admission - Tele/monitor - Resume home meds: ASA, CCB, beta virgilio - Repeat EKG 05/09/17 showed normal sinus rhythm - Heparin for prophylaxis Asymptomatic euvolemic hyponatremia, chronicity unknown, present on admission. Improved - On admit: Na 125; NextGen 12/2016 Na 134 - May be secondary to duloxetine - Monitor for sx; consider cessation of SSRI - Continue to monitor BMP Elevated troponin, likely acute, present on admission. Resolved - On admit: 0.018. Repeat 0.010. - May be secondary to underlying infection, CKD, cardiac demand ischemia Hypertension, chronic. Active - Elevated reading in ED: 198/81; trended down to 161/47 - Increase likely secondary to suspected underlying illness, anxiety - Monitor and resume home medications - Increased lisinopril to 10 mg daily Chronic kidney disease. Presumed stable - On admit: Cr 1.02; NextGen 12/2016 Cr 1.11; baseline approx. 1.1-1.2 - Monitor BMP CAD s/p CABG, chronic. Presumed stable - ECHO 08/2014: EF55, LV normal size/function; RV normal size/function; LA dilated; mild-mod MR, mild AR - Continue home statin, beta virgilio, ASA, CCB Bilateral lower extremity neuropathy, chronic. Presumed stable - Pt followed by [facility] rheumatology, neurology - Known h/o polio, OA, motor neuropathy, venous insufficiency, spinal stenosis - Resume home dose Lyrica - PT evaluation recommends home health PT Diabetes mellitus, type 2 non-insulin using, chronic. Presumed stable - A1c 08/2015: 6.3 - Due to pts age, risk of hypoglycemic events, and unlikelihood of progression of secondary effects, no medications ordered at this time - Encourage healthy diet Constipation, chronic. Presumed stable -Schedule softeners/bowel meds Disposition: Likely discharge in 1-2 days depending on patient clinical status, electrolyte abnormalities and atrial fibrillation. Resuscitation Status: DNR/DNI:Do Not Resuscitate/Intubate Attending Statement The patient was seen and examined together with Dr. Anderson on 05/10/2017 and I have added additional information to the note above. Valentin Anderson DO May 10, 2017 06:03 Jackie Galloway DO May 14, 2017 17:55 Valentin Anderson DO May 10, 2017 06:03 Valentin Anderson DO May 10, 2017 06:03
--- NOTE | 2017-05-10 14:55 | NUR ---
Social Work Note: Multidisciplinary Rounds Pt was discussed in AM rounds, per MD pt is getting closer to being medically ready for discharge and will be getting more fluids and electrolytes today. PT is recommending Home Health PT for strengthening. SW to await for MD order and discuss Home Health preferences with pt in anticipation of discharge. SW to await MD orders and continue to follow. ROYAL Zuleta
[2017-05-11 02:45] VITALS: BP 164/60; PULSE 62; RESP 18; O2SAT 91
[2017-05-11 02:53] LABS: BASOPHILS % (AUTO) 0.2 % (0-3); MONOCYTES % (AUTO) 10.3 % (4-12); Mean Corpuscular Hemoglobin 28.9 pg (27.0-35.0); Mean Corpuscular Volume 88.1 fL (81-100); NEUTROPHILS % (AUTO) 58.7 % (40-74); Platelet Count 194 bil/L (150-400)
[2017-05-11] MEDS: Piperacillin-Tazo 3.375 Gm Inj 3.375 GM in Dextrose 5% Minibag Plus 50 ML IV SCH (04:14)
--- NOTE | 2017-05-11 06:29 | NUR ---
pain pts pain in her leg not as bad tonight as previous nights only needing tylenol one time
[2017-05-11] MEDS ORDERED: Potassium Chloride 20 mEq SR Tablet PO ONE (07:15)
[2017-05-11] MEDS ORDERED: 0.9% Sodium Chloride 1,000 ML IV SCH (07:15)
[2017-05-11 08:32] VITALS: BP 162/53; PULSE 58; RESP 16; O2SAT 95
[2017-05-11] MEDS: DULoxetine 30 mg DR Capsule PO SCH (08:46)
[2017-05-11] MEDS: MeTOProlol XL 25 mg ER24 Tablet PO SCH (08:46)
[2017-05-11] MEDS: Isosorbide Mononitrate 60 mg ER24 Tablet PO SCH (08:48)
[2017-05-11] MEDS: Heparin 5,000 Unit/mL Inj SUBQ SCH (08:48)
[2017-05-11 10:23] VITALS: PULSE 67
--- NOTE | 2017-05-11 10:45 | NUR ---
Multidisciplinary Rounds Note: Per MD in rounds patient likely to discharge today home and will need to continue home health RN 2x week and add Physical Therapy. Gave access to LEONARDO and called Thomas Ambrosio clinicals liaison [phone] to let him know about discharge. DRUM STRAIGHTENER Updated
[2017-05-11] MEDS ORDERED: LISI10TA PO (12:14)
[2017-05-11] MEDS ORDERED: AMOX-366 PO (12:15)
[2017-05-11 12:26] VITALS: BP 117/64; PULSE 80; RESP 18; O2SAT 96
--- NOTE | 2017-05-11 12:26 | PCM.DIMED ---
aVlentin Anderson DO 05/11/17 1212: Discharge Instructions Date of Service May 11, 2017 Dates of Hospitalization May 08, 2017 at 02:35 Discharge Diagnosis Discharge Diagnosis Community Acquired Pneumonia Hypokalemia, chronicity unknown Atrial fibrillation not on correction anticoagulation Asymptomatic euvolemic hyponatremia Elevated troponin Hypertension, chronic Chronic kidney disease CAD s/p CABG Bilateral lower extremity neuropathy Diabetes mellitus, type 2 non-insulin using Constipation Medication Instructions Additional med instructions New Medications Augmentin 875-125 mg, 1 pill, two times per day for 5 days Changes to Medications Lisinopril 10 mg 1 pill, two times per day until reviewed by your primary care provider - You already have 1 pill in your readymade pack, only take one pill a day from the prescription we are giving you. Diet Discharge Diet: Heart Healthy, Diabetic Activity Discharge Activity: Home Health Phyical Therapy (3 times per week for both physical therapy and nursing) Call your provider Call your provider for: Fever or Chills, Shortness of breath, Chest pain, Excessive diarrhea Patient Instructions Patient Instructions You are being treated for your pneumonia with Augmentin. Take this twice a day for 5 days. Follow up with your primary care provider within 1 week and have a lab test to check your BMP to assess your electrolytes. - Also discuss if you are still having atrial fibrillation. You had an episode while you were in the hospital, but are currently having normal heart beat upon discharge from the hospital. Your blood pressure was elevated while you were in the hospital. We have increased your lisinopril to 10 mg twice daily. Please re evaluate this with your primary care physician to make sure you have good control of your blood pressure. We have ordered for you home physical therapy and nursing. We recommend you to have this at least 3 times per week. Follow-up Provider: Wallace Hitchcock MD Follow-up with PCP in: 1 week Provider: Elodia Stover MD Follow-up in: 4 weeks (follow up within 1 month or as scheduled with Dr. Stover to discuss your atrial fibrillation) Jackie Galloway DO 05/11/17 1835: Discharge Instructions Attending's Statement The patient was seen and examined together with Dr. Anderson on 05/11/17 and I agree with the history, exam and plan as outlined in the note above. Valentin Anderson DO May 11, 2017 12:12 Jackie Galloway DO May 11, 2017 18:35
--- NOTE | 2017-05-11 14:06 | NUR ---
Discharge Pt dc'd in WC with and son with assistance of MAGNETIC RESONANCE IMAGING COORDINATOR at 1406. Pt stable w/o complaints. All discharge paperwork and instructions reviewed and pt and verbalized understanding of all instructions. All belongings with pt.
--- NOTE | 2017-05-11 14:58 | NUR ---
Wound Care Patient seen at bedside for wound care, did not like compression wrap, mod serous drainage on dressing. Wound at right lateral lower leg cleaned with saline and gauze, mepilex dressing placed. Appointment made for follow up at the wound center next week. Recommend continued HH for wound care to include cleaning of right lateral lower leg wound with saline and gauze and foam dressings.
--- NOTE | 2017-05-11 15:25 | NUR ---
Social Work Note: Discharge/Multidisciplinary Rounds Data& Assessment: Pt was discussed in AM rounds, Per pt is medically ready to discharge home via POV back to [facility] with Jose F COTTON RN with PT added per MD orders. F2F provided to Thomas with Bhumi COTTON and notified of pt discharge. SW met with pt and pt at bedside to confirm discharge plan and assess for any unmet needs. Pt and pt confirmed plan to discharge home with jose f COTTON and denies any other needs. No other discharge needs or MD orders identified. All updated and agreeable to plan. Plan: Per pt is medically ready to discharge home via POV with jose f COTTON RN and PT. No other discharge needs or MD orders identified. All updated and agreeable to plan. ROYAL Zuleta
--- NOTE | 2017-05-11 17:54 | PCM.DC.MED ---
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 Blunting of the left costophrenic angle consistent with a chronic pleural effusion versus pleural thickening. 2. Bibasilar linear opacities likely representing atelectasis. 3. Moderate size hiatal hernia again noted. Dictated and approved by: Hu Yen M.D. on 05/08/2017 at 10:06 ECG 12 Lead EKG 05/09/17 Normal sinus rhythm EKG 05/08/17 Atrial Fibrillation Brief History Lalito Melchor is an 86 year old female with past medical history of CKD , DMT2, Afib, CAD with previous CABG and stents X8, and h/o DVTs who presented to the ED with weakness with associated chills and found to have a chest x-ray suggestive of pneumonia. She was started on treatment for likely community acquired pneumonia initially with ceftriaxone, azithromycin and vancomycin. After MRSA swab came back negative, her vancomycin was discontinued. While she was here, she was having hyponatremia, hypokalemia, hypertension and atrial fibrillation, likely secondary to her pneumonia. As for her electrolyte imbalances they were repleted as needed, however the sodium did not want to correct to normal. After looking at previous labs from her hospital visits in the past, it showed that she's had a chronic hyponatremia for at least 5 years. Her hypokalemia did resolve with oral potassium. Her hypertension was not correcting with her home medications, so lisinopril was increased to 10 mg BID. She should resume this course in the outpatient setting until reviewed by her PCP. Her atrial fibrillation corrected on its own as treatment for her pneumonia progressed. She was in normal sinus rhythm at discharge from the hospital. She will need a BMP within one week of her discharge to assess electrolyte abnormalities. She should finish 5 days of augmentin 875-125 BID for her pneumonia. Hospital Course Lalito Melchor is an 86 year old female with past medical history of CKD , DMT2, Afib, CAD with previous CABG and stents X8, and h/o DVTs who presented to the ED with weakness with associated chills and found to have a chest x-ray suggestive of pneumonia. Hospital problem list outlined below Community acquired pneumonia, acute, present on admission. Improving - On admit: WBC 22.3; with 90% diff. CXR suggestive of PNA; - Discharged with augmentin 875-125mg BID for 5 days - Blood Cultures negative x 48 hours - Strep pneu Ag, Legionella Ag, Resp PCR, MRSA all negative - Procalcitonin was downtrending Hypokalemia, chronicity unknown, present on admission. Active. - On admit: K 3.2, Mag 1.6. - Replete as needed. 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 Presumed stable Discussion with Dr. Stover, her diesel dinkey operator, revealed she is in normal sinus rhythm mostly. This is most likely secondary to her pneumonia. - Evidenced on EKG on admission - Resume home meds: ASA, CCB, beta virgilio - Repeat EKG 05/09/17 showed normal sinus rhythm Asymptomatic euvolemic hyponatremia, chronicity unknown, present on admission. Improved - On admit: Na 125; [employer] 12/2016 Na 134 - May be secondary to duloxetine - consider cessation of SSRI - This will require outpatient followup Elevated troponin, likely acute, present on admission. Resolved - On admit: 0.018. Repeat 0.010. - May be secondary to underlying infection, CKD, cardiac demand ischemia Hypertension, chronic. Active - Elevated reading in ED: 198/81; trended down to 161/47 - Increase likely secondary to suspected underlying illness, anxiety - Increased lisinopril to 10 mg BID Chronic kidney disease. Presumed stable - On admit: Cr 1.02; [employer] 12/2016 Cr 1.11; baseline approx. 1.1-1.2 CAD s/p CABG, chronic. Presumed stable - ECHO 08/2014: EF55, LV normal size/function; RV normal size/function; LA dilated; mild-mod MR, mild AR - Continued home statin, beta virgilio, ASA, CCB Bilateral lower extremity neuropathy, chronic. Presumed stable - Pt followed by [facility] rheumatology, neurology - Known h/o polio, OA, motor neuropathy, venous insufficiency, spinal stenosis - Resumed home dose Lyrica - PT evaluation recommends home health PT. Ordered at discharge. Diabetes mellitus, type 2 non-insulin using, chronic. Presumed stable - A1c 08/2015: 6.3 - Due to pts age, risk of hypoglycemic events, and unlikelihood of progression of secondary effects, no medications ordered at this time - Encourage healthy diet Constipation, chronic. Presumed stable Exam Vital Signs (Last) Date Time Temp Pulse Resp B/P Pulse Ox O2 Delivery O2 Flow Rate FiO2 05/11/17 12:26 36.7 80 18 117/64 96 Room Air Exam General: No acute distress, well-developed, well-nourished, appropriately interactive HEENT: Normocephalic, atraumatic. External ears without defect. Anicteric sclerae, moist conjunctivae. Neck: Supple with full range of motion. No jugular venous distension. No bruits. No lymphadenopathy or thyromegaly. Cardiovascular: Regular rate and rhythm with no murmurs, rubs, or gallops appreciated Pulmonary: Clear to auscultation bilaterally with no crackles, wheezes, or rhonchi. Normal respiratory effort with no use of accessory muscles. Abdomen: Bowel tones present. Soft, nontender, nondistended. No hepatosplenomegaly or masses appreciated. Extremities: No clubbing or cyanosis, mild edema bilaterally in lower extremities. Skin: Normal temperature, turgor, and texture; no rash, Right lower extremity with coban wrapping. Neurological: Cranial nerves grossly intact. Normal muscle strength, tone, and bulk. Reflexes, coordination, and sensory function within normal limits. No known gait impairment. Psychiatric: Normal mood and affect. Alert and oriented to person, place, and time. Test 05/08/17 00:56 05/08/17 01:35 05/08/17 01:38 05/08/17 08:30 Lactic Acid Level 1.5mmol/L (0.4-2.0) Pro-B-Type Natriuretic Peptide 1145pg/mL (0-738) Lipase 22U/L (13-60) Urine Color Yellow (YELLOW) Urine Appearance Clear (CLEAR,HAZY) Urine pH 6.0 (5.0-8.0) Urine Specific [place] 1.010 (1.003-1.035) Urine Protein Negativemg/dL (NEG,TRACE) Urine Glucose (UA) Negativemg/dL (NEGATIVE) Urine Ketones Negativemg/dL (NEGATIVE) Urine Occult Blood Small (NEGATIVE) Urine Nitrite Negative (NEGATIVE) Urine Bilirubin Negative (NEGATIVE) Urine Urobilinogen Normalmg/dL (NORMAL) Urine Leukocyte Esterase Negative (NEGATIVE) Urine RBC 3-10/hpf (0-2) Urine WBC 0-5/hpf (0-5) Urine Epithelial Cells Occasional/hpf (NONE-MOD) Urine Crystals None seen (NONE SEEN) Urine Bacteria None/hpf (NONE-FEW) Urine Hyaline Casts None/lpf (NONE) Urine Granular Casts None seen (NONE SEEN) Urine Waxy Casts None seen (NONE SEEN) Urine Red Blood Cell Casts None seen (NONE SEEN) Urine White Blood Cell Casts None seen (NONE SEEN) Urine Mucus None seen (None Seen) Urine Trichomonas None seen (NONE SEEN) Urine Yeast None (NONE SEEN) Urinalysis Comment None Urine Culture Reflexed Not indicated Urine Legionella pneumophilia Ag Negative (Negative) Prothrombin Time 10.8sec (8.1-12.5) Prothromb Time International Ratio 1.01ratio Test 05/09/17 03:10 05/09/17 20:23 05/10/17 02:45 05/11/17 02:30 Magnesium Level 2.0mg/dL (1.6-2.6) Total Bilirubin 0.4mg/dL (0.0-1.2) Aspartate Amino Transf (AST/SGOT) 27U/L (0-50) Alanine Aminotransferase (ALT/SGPT) 16U/L (0-32) Alkaline Phosphatase 76U/L (25-165) Total Protein 7.7g/dL (6.4-8.4) Albumin 3.5g/dL (3.4-5.0) Troponin T 0.010ug/L (0.0-0.011) Procalcitonin 0.75ng/mL (0.00-0.08) White Blood Count 8.2th/mm3 (3.8-10.1) Red Blood Count 3.18mil/mm3 (3.90-5.20) Hemoglobin 9.2g/dL (12.0-15.6) Hematocrit 28.0% (35.0-46.0) Mean Corpuscular Volume 88.1fL (81-100) Mean Corpuscular Hemoglobin 28.9pg (27.0-35.0) Mean Corpuscular Hemoglobin Concent 32.9% (32.0-37.0) Red Cell Distribution Width 16.5% (12.3-15.4) Platelet Count 194bil/L (150-400) Neutrophils (%) (Auto) 58.7% (40-74) Lymphocytes (%) (Auto) 26.4% (14-46) Monocytes (%) (Auto) 10.3% (4-12) Eosinophils (%) (Auto) 4.0% (0-5) Basophils (%) (Auto) 0.2% (0-3) Sodium Level 128mEq/L (134-144) Potassium Level 3.6mEq/L (3.5-5.2) Chloride Level 94mEq/L (97-108) Carbon Dioxide Level 20mmol/L (18-29) Blood Urea Nitrogen 13mg/dL (8-27) Creatinine 0.84mg/dL (0.57-1.00) Estimat Glomerular Filtration Rate 92mL/min (>59) Glucose Level 102mg/dL (60-99) Calcium Level 8.8mg/dL (8.5-10.1) Microbiology Results MRSA - Not detected Strep Pneumo - Negative Legionella Negative Blood Cultures negative x 24 hours Microbiology ADENOVIRUS RESPIRATORY PCR Final 05/09/17 Not Detected CORONOVIRUS 229E Final 05/09/17 Not Detected CORONOVIRUS HKU1 Final 05/09/17 Not Detected CORONOVIRUS NL63 Final 05/09/17 Not Detected CORONOVIRUS OC43 Final 05/09/17 Not Detected INFLUENZA A PCR Final 05/09/17 Not Detected INFLUENZA B PCR Final 05/09/17 Not Detected METAPNEUMOVIRUS PCR Final 05/09/17 Not Detected RHINOVIRUS OR ENTEROVIRUS PCR Final 05/09/17 Not Detected PARAINFLUENZA 1 PCR Final 05/09/17 Not Detected PARAINFLUENZA 2 PCR Final 05/09/17-1201 Not Detected PARAINFLUENZA 3 PCR Final 05/09/17-1201 Not Detected PARAINFLUENZA 4 PCR Final 05/09/17-1201 Not Detected CONTINUED ON NEXT PAGE RUN DATE: 05/09/17 [facility] LIVE PAGE 2 RUN TIME: 1203 Specimen Inquiry PHYSICIAN Patient: LALITO MELCHOR [id number] (Continued) Specimen: [id number] Collected: 05/09/17 Received: 05/09/17-1039 (Continued) Procedure Result Verified Site RESP SYNCYTIAL VIRUS PCR Final 05/09/17-1201 Not Detected Microbiology (Continued) CHLAMDOPHILIA PNEUMONIAE PCR Final 05/09/17-1201 Not Detected MYCOPLASMA PNEUMONIAE PCR Final 05/09/17 MYCO PNEUMONIAE PCR Not Detected Reference Interval Not Detected Discharge Medications Discharge Medications Amlodipine (Norvasc) 5 Mg Tablet 5 MG PO DAILY Prescribed by: RADHA BYNUM MD Amoxicillin/Clav K 875-125 mg (Augmentin 875-125 mg) 1 Each Tablet 1 TABLET PO BID Prescribed by: GOOD ANDERSON, Ascorbic Acid (Vitamin C) 1,000 Mg Tab.chew 1,000 MG PO HS (Reported) Atorvastatin (Lipitor) 80 Mg Tablet 80 MG PO DAILY (Reported) Calcium Carb&Cit/Mag12/Vit D3 (Calcium 500 mg Tablet) 1 Each Tablet 1 EACH PO DAILY (Reported) Chlorthalidone (Chlorthalidone) 25 Mg Tablet 25 MG PO HS (Reported) Duloxetine (Cymbalta) 60 Mg Capsule.dr 60 MG PO HS (Reported) Isosorbide MN ER (Isosorbide MN ER) 120 Mg Tab.er.24h 120 MG PO DAILY (Reported ) Levothyroxine (Tirosint) 50 Mcg Capsule 50 MCG PO DAILY (Reported) Lisinopril (Lisinopril) 10 Mg Tablet 10 MG PO BID Prescribed by: GOOD ANDERSON, Metoprolol Succinate ER (Metoprolol Succinate ER) 25 Mg Tab.er.24h 25 MG PO DAILY (Reported) Montelukast (Montelukast) 10 Mg Tablet 10 MG PO HS (Reported) Nortriptyline (Nortriptyline) 10 Mg Capsule 20 MG PO QID (Reported) Pantoprazole DR (Pantoprazole DR) 40 Mg Tablet.dr 40 MG PO DAILY (Reported) Pregabalin (Lyrica) 50 Mg Capsule 50 MG PO TID (Reported) Ubidecarenone (Co Q-10) 100 Mg Capsule 100 MG PO DAILY (Reported) As needed Albuterol HFA (Proair HFA) 8.5 Gm Hfa.aer.ad 2 PUFFS IH Q4-6H PRN PRN For Shortness of Breath (Reported) Nitroglycerin SL (Nitrostat) 0.4 Mg Tab.subl 0.4 MG SL Q5MIN PRN PRN For Chest Pain (Reported) Tramadol (Tramadol) 50 Mg Tablet 25 MG PO Q6 PRN PRN For Pain (Reported) Miscellaneous Medications Fluticasone Propionate (Flonase Allergy Relief) 50 Mcg/Actuation [place].susp 9.9 ML NS (Reported) Multivitamin (Once Daily) 1 Each Tablet 1 EACH PO (Reported) Additional med instructions New Medications Augmentin 875-125 mg, 1 pill, two times per day for 5 days Changes to Medications Lisinopril 10 mg 1 pill, two times per day until reviewed by your primary care provider - You already have 1 pill in your readymade pack, only take one pill a day from the prescription we are giving you. Followup Plan Discharge Diet: Heart Healthy, Diabetic Discharge Activity: Home Health Phyical Therapy (3 times per week for both physical therapy and nursing) Patient Instructions You are being treated for your pneumonia with Augmentin. Take this twice a day for 5 days. Follow up with your primary care provider within 1 week and have a lab test to check your BMP to assess your electrolytes. - Also discuss if you are still having atrial fibrillation. You had an episode while you were in the hospital, but are currently having normal heart beat upon discharge from the hospital. Your blood pressure was elevated while you were in the hospital. We have increased your lisinopril to 10 mg twice daily. Please re evaluate this with your primary care physician to make sure you have good control of your blood pressure. We have ordered for you home physical therapy and nursing. We recommend you to have this at least 3 times per week. Follow-up Provider: Wallace Hitchcock MD Follow-up with PCP in: 1 week Provider: Elodia Stover MD Follow-up in: 4 weeks (follow up within 1 month or as scheduled with Dr. Stover to discuss your atrial fibrillation) Time spent Greater than 35 minutes Attending Statement The patient was seen and examined together with Dr. Hardy on 05/11/17 and I have added additional information to the note above. copies to: Elodia Stover MD; Wallace Hitchcock MD, Malik A DO May 11, 2017 17:54 Jackie Galloway DO May 11, 2017 18:32
== END 2017-05-11 14:05 | disposition home health service (06) | DRG 194 ==
LOC: SED 23:10 → PCC 05-08 02:35
PROVIDERS: ADMIT Internal Medicine; ATTEND Internal Medicine
DX: J18.9 Pneumonia, unspecified organism (principal); E87.1 Hypo-osmolality and hyponatremia; I24.8 Other forms of acute ischemic heart disease; L97.819 Non-pressure chronic ulcer of other part of right lower leg with unspecified severity; I83.018 Varicose veins of right lower extremity with ulcer other part of lower leg; Z87.891 Personal history of nicotine dependence; E87.6 Hypokalemia; I12.9 Hypertensive chronic kidney disease with stage 1 through stage 4 chronic kidney disease, or unspecified chronic kidney disease; E11.22 Type 2 diabetes mellitus with diabetic chronic kidney disease; N18.3 Chronic kidney disease, stage 3 (moderate); K59.09 Other constipation; Z95.5 Presence of coronary angioplasty implant and graft; Z95.1 Presence of aortocoronary bypass graft; I48.2 Chronic atrial fibrillation; G62.9 Polyneuropathy, unspecified

== ENCOUNTER 2017-06-01 13:03 | Emergency (ER) | payer MEDICARE ==
[~2017-06-01] VITALS: Ht 172.7 cm; Wt 71.8 kg
[~2017-06-01 13:03] MED LIST changes: +AMOX-366 PO; +DULO60CA42 PO; -LISI-571 PO; +LISI10TA PO; +PREG50CA PO
[2017-06-01 13:08] VITALS: BP 183/67; PULSE 57; RESP 10; O2SAT 98
--- NOTE | 2017-06-01 13:51 | ED.REPORT ---
HPI-Trauma Minor / Fall Date of Service Jun 01, 2017 ED Provider: Darryl Rivas PA-C Rocio is an 86-year-old female present to the emergency department following a fall. Patient reports reaching for something on a high shelf and falling over backwards, striking her head against the corner of a wall causing a laceration. Reports this caused a mild headache which resolved with Tylenol. Denies pain at this time. Denies loss of consciousness, use of blood thinners, worsening headache, vomiting, seizures. Denies neck pain, numbness or weakness in her extremities, vision changes. Denies that the fall was preceded by chest pain, shortness of breath, dizziness, loss of consciousness. Family does report increased falls in the last week. Patient was treated for pneumonia approximately 3 weeks, ago denies fever, cough at this time. Denies urinary symptoms. Nursing Notes Stated Complaint: GASH ON BACK LEFT/MID OF HEAD Chief Complaint: Multiple Trauma/Fall Nursing Notes Reviewed: Yes Allergies: Coded Allergies: Sulfa (Sulfonamide Antibiotics) (Verified Allergy, Severe, 09/16/15) meclizine (Verified Allergy, Severe, 09/16/15) meperidine HCl (Verified Allergy, Severe, 09/16/15) Scheduled Amlodipine (Norvasc) 5 Mg Tablet 5 MG PO DAILY Amoxicillin/Clav K 875-125 mg (Augmentin 875-125 mg) 1 Each Tablet 1 TABLET PO BID Ascorbic Acid (Vitamin C) 1,000 Mg Tab.chew 1,000 MG PO HS Atorvastatin (Lipitor) 80 Mg Tablet 80 MG PO DAILY Calcium Carb&Cit/Mag12/Vit D3 (Calcium 500 mg Tablet) 1 Each Tablet 1 EACH PO DAILY Chlorthalidone (Chlorthalidone) 25 Mg Tablet 25 MG PO HS Duloxetine (Cymbalta) 60 Mg Capsule.dr 60 MG PO HS Isosorbide MN ER (Isosorbide MN ER) 120 Mg Tab.er.24h 120 MG PO DAILY Levothyroxine (Tirosint) 50 Mcg Capsule 50 MCG PO DAILY Lisinopril (Lisinopril) 10 Mg Tablet 10 MG PO BID Metoprolol Succinate ER (Metoprolol Succinate ER) 25 Mg Tab.er.24h 25 MG PO DAILY Montelukast (Montelukast) 10 Mg Tablet 10 MG PO HS Nortriptyline (Nortriptyline) 10 Mg Capsule 20 MG PO QID Pantoprazole (Pantoprazole DR) 40 Mg Tablet.dr 40 MG PO DAILY Pregabalin (Lyrica) 50 Mg Capsule 50 MG PO TID Ubidecarenone (Co Q-10) 100 Mg Capsule 100 MG PO DAILY Scheduled PRN Albuterol HFA (Proair HFA) 8.5 Gm Hfa.aer.ad 2 PUFFS IH Q4-6H PRN PRN For Shortness of Breath Nitroglycerin SL (Nitrostat) 0.4 Mg Tab.subl 0.4 MG SL Q5MIN PRN PRN For Chest Pain Tramadol (Tramadol) 50 Mg Tablet 25 MG PO Q6 PRN PRN For Pain Miscellaneous Medications Fluticasone Propionate (Flonase Allergy Relief) 50 Mcg/Actuation [place].susp 9.9 ML NS Multivitamin (Once Daily) 1 Each Tablet 1 EACH PO General Time Seen by MD: 13:28 Chief Complaint Head injury Past Medical History Past Medical History Unstable angina, status post left heart catheterization, status post drug-coated stent placement to the right coronary artery February 2014 Chronic anemia. Chronic renal insufficiency. Reports: Coronary artery disease, GERD, Hyperlipidemia, Hypertension Past Surgical History Multiple cardiac stents (8) Reports: CABG Family History Reviewed, not relevant Smoking History Former Smoker Social History Alcohol Use: Denies alcohol use Drug Use: Denies drug use Other Social History: Ambulatory Status Cane Review of Systems Review of Systems Note: Negative unless stated otherwise in history of present illness Physical Exam General: Well appearing, well developed, well nourished, no acute distress. Head: 5 cm laceration occipital scalp, negative crepitus or deformity. Negative raccoons eyes, bain sign. No mastoid tenderness. Eyes: No scleral icterus or injection. No discharge. PERRL. Vision grossly intact. Ears: Pinna and tragus nontender with manipulation. Hearing aids are in place. Bilateral external auditory canals obstructed with cerumen. Nose: Symmetrical, nares patent without discharge. No frontal or maxillary sinus tenderness. Mouth/pharynx: normal dentition, mucus membranes moist. Tonsils 2+ and symmetrical, uvula midline. Pharynx noninjected, no cobblestoning or discharge. Voice clear. Neck: Negative midline cervical spinous process tenderness, excellent range of motion Respiratory: Regular rate and rhythm. Breath sounds present, clear to auscultation and equal bilaterally. No respiratory distress. No increased work of breathing, speaks in complete sentences. Cardiovascular: Regular rate and rhythm, without murmur, gallop or rub. Increased spell sounds noted. No pedal edema. Skin: Warm and dry. Neurological: Deltoid abduction, wrist flexion and extension, finger flexion and abduction strength 5/5 B/L. Sensation to light touch intact over deltoid as well as first, third and fifth digits B/L. sensation and strength grossly intact in lower extremity. Cranial nerves: Vision grossly intact, PERRL, EOMI. Facial motion symmetrical, sensation to light touch over forehead, maxilla and mandible present and equal B /L. Voice clear and fluent, no drooling/pooling of saliva, uvula rises midline. Psychological: Alert and oriented. Speech appropriate, linear and logical. Behavior appropriate. Initial Vital Signs Vital Signs (First) Date Time Temp Pulse Resp B/P Pulse Ox O2 Delivery O2 Flow Rate FiO2 06/01/17 13:08 36.4 57 10 183/67 98 06/01/17 17:03 Room Air Mild bradycardia Interpretation & Diagnostics Lab Results Interpretation Result Diagram: 06/01/17 1420 06/01/17 1420 Test 06/01/17 14:20 White Blood Count 7.8th/mm3 (3.8-10.1) Red Blood Count 3.48mil/mm3 (3.90-5.20) Hemoglobin 10.0g/dL (12.0-15.6) Hematocrit 31.1% (35.0-46.0) Mean Corpuscular Volume 89.4fL (81-100) Mean Corpuscular Hemoglobin 28.7pg (27.0-35.0) Mean Corpuscular Hemoglobin Concent 32.2% (32.0-37.0) Red Cell Distribution Width 17.9% (12.3-15.4) Platelet Count 224bil/L (150-400) Neutrophils (%) (Auto) 68.7% (40-74) Lymphocytes (%) (Auto) 16.9% (14-46) Monocytes (%) (Auto) 11.2% (4-12) Eosinophils (%) (Auto) 2.3% (0-5) Basophils (%) (Auto) 0.4% (0-3) Sodium Level 131mEq/L (134-144) Potassium Level 3.7mEq/L (3.5-5.2) Chloride Level 93mEq/L (97-108) Carbon Dioxide Level 24mmol/L (18-29) Blood Urea Nitrogen 21mg/dL (8-27) Creatinine 1.06mg/dL (0.57-1.00) Estimat Glomerular Filtration Rate 70mL/min (>59) Glucose Level 109mg/dL (60-99) Calcium Level 9.2mg/dL (8.5-10.1) Total Bilirubin 0.5mg/dL (0.0-1.2) Aspartate Amino Transf (AST/SGOT) 27U/L (0-50) Alanine Aminotransferase (ALT/SGPT) 14U/L (0-32) Alkaline Phosphatase 103U/L (25-165) Troponin T 0.017ug/L (0.0-0.011) Total Protein 8.0g/dL (6.4-8.4) Albumin 3.6g/dL (3.4-5.0) Hold Stack Top Tube Received (Received) ECG Interpretation ECG Interpretation: Sinus rhythm rate of 57, borderline prolonged AK interval, incomplete left bundle branch block, negative ischemic changes. Time: 14:13 Interpreted by: ED physician (Gissell) X-Ray Chest Interpretation Chest Xray Interpretation: PROCEDURE: X-RAY CHEST, TWO VIEWS ([id number]) INDICATIONS: history of pneumonia, fall IMPRESSION: 1. No acute cardiopulmonary abnormality. 2. Atheromatous vascular disease status post CABG. 3. Ill-defined density at the left base medially is unchanged , possible atelectasis secondary to adjacent moderate hiatal hernia. Possibility of left lower lobe pneumonia cannot be excluded. Interpretation / Wet Read by: Interpret - ED physician, Interpret - Radiologist, Interp - [facility] CT Head Interpretation PROCEDURE: CT BRAIN WITHOUT CONTRAST ([id number]) INDICATIONS: head trauma IMPRESSION: 1. Bilateral frontal lobe cortical contusions. No associated mass effect or subdural hematoma. No underlying skull fracture. 2. Age-related atrophy and mild chronic deep white matter small vessel ischemic change. Interpretation / Wet Read by: Interpret - Radiologist, Discussed w radiologist Procedures Laceration Management Laceration Management: 5 cm laceration occipital scalp Procedure Performed by: Allied health pract (Rob PASCAL) Consent / Setup / Site Prep: Consent from patient, Hand hygiene observed Wound Length: 5 cm Local Anesthesia: Bupivacaine 0.5% (with appendectomy) Wound Preparation: [place], Normal saline Debridement: Minimal Irrigation: Copious Foreign Body Explore / Removal: Explored for foreign body Repair Skin: [place] # Sutures - Skin: 7 Closure Layers: 1 Post-Procedure / Complications: Antibiotic oint applied, No complications, Condition improved, Tolerated procedure well, Patient stable Re-Eval/Medical Decision Med Decision/Clinical Course 86-year-old female presents with chief complaint of a apparently mechanical fall resulting laceration to the back of her head. Denies loss of consciousness , worsening headache, vomiting, seizure, use of blood thinners, neurological symptoms, neck pain. Denies chest pain, shortness of breath, cough, fever. Family reports recent history of pneumonia, remote history of CABG, and recent increased falls. Physical examination reveals a 5cm laceration to the occipital scalp nontender cervical spine with good range of motion and normal neurological examination. I discussed this case with Dr. Damon, who recommends CT of brain based on the patient's age. C-spine is cleared by nexus criteria. CXR, labs including troponin, EKG, UA are ordered out of consideration for the patient's medical history and recent history of increased falls. CBC reveals mild anemia consistent with previous studies negative for leukocytosis. CMP reveals natremia and hypochloremia consistent with previous studies, creatinine slightly elevated at 1.06. Pertinent is noted be slightly high at 0.017, which is consistent with previous studies since 2015. EKG is negative for ischemic changes or arrhythmia. Chest x-ray is consistent with the previous study, which cannot rule out a pneumonia. UA is pending a urine sample. I discussed these results with Dr. Do, which we find generally reassuring. The context of negative chest pain and a relatively normal EKG we feel that the slightly elevated troponin, consistent with previous studies, is acceptable. Do not feel that the chest x-ray indicates a pneumonia as the patient has no cough, fever, chest pain and the changes most likely represent atelectasis secondary to her hiatal hernia. Head CT reveals bilateral frontal lobe cortical contusion. Consultation with [facility] neurosurgery was initiated to determine the best course of action. Dr. Fuller reviews head CT, feels that discharge to home with return precautions as appropriate. Does not feel [facility] follow-up will be necessary. Advised primary care follow-up. Laceration is closed according to the procedure note above. Discussed findings with patient and her family, all of whom are eager for discharge. Patient continues to feel well. We were unable to obtain a urine specimen, though I have minimal concern for urinary tract infection. Patient is also unsure of her tetanus status. I advised that they discuss this with her primary care provider tomorrow. Also advised regarding wound care, staple removal. Provided strict emergency return precautions. She appears competent, well cared for and able to return should that become necessary. The patient and her family verbalized understanding of and consent to plan. Consultation : Consulted With: Neurosurgery (Dr. Gamal Fuller) Call Returned at: 16:31 Note: Dr. Gan at [facility] neurosurgery is not particularly concerned about this patient based on her CT scan. He feels discharge to home with return precautions is reasonable. He does not believe the follow-up at [facility] will be necessary. Advised follow-up with primary care. 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 These were all reassuring that this was unlikely to be caused by an infection or heart condition. CT the head revealed a slight contusion to the brain. I discussed this finding with the neurosurgeon at [facility], he feels it is safe to discharge you to home. Please return to the emergency department immediately if he notices any change in your condition such as increasing headache, vomiting, seizure, increasing confusion. Furthermore, I ask that you see your primary care provider tomorrow to be sure this is progressing as expected. At that time, please discuss a tetanus booster and performing a urinalysis, as we were not able to collect a sample here in the emergency department Physical examination also reveals a large laceration to the back. This appears to be a clean wound. I see no indication for antibiotics at this time. You are a bit unsure of your tetanus status. Again, please discuss this with her primary care provider. We have thoroughly cleaned and stapled the wound. I also applied antibiotic ointment It is best to keep this wound dry for the next 24 hours. After that you can wash with soap and water as you usually do. Please do not submerge the wound as swimming or soaking in a tub until you have the sutures removed. The pain is best treated with up to 1000 mg of acetaminophen (Tylenol) every 6 hours. Be vigilant for signs of infection. While a small amount of redness, tenderness and clear or pink drainage is normal, any increasing pain, redness, swelling or the appearance of pus suggests infection. More severe infection as suggested by symptoms such as fever, chills, feeling ill, racing heart. Please return to emergency Department if you notice signs of infection. Follow-up with your primary care provider or return to the emergency department in 10-14 days for suture removal. Referrals: Wallace Hitchcock MD (PCP) EDSupervising Provider for APC: Tarik Rodriguez DO copies to: Wallace Hitchcock MD, Seth PA-C Jun 01, 2017 13:51
[2017-06-01 14:29] LABS: BASOPHILS % (AUTO) 0.4 % (0-3); EOSINOPHILS % (AUTO) 2.3 % (0-5); MONOCYTES % (AUTO) 11.2 % (4-12); Mean Corpuscular Hemoglobin 28.7 pg (27.0-35.0); Mean Corpuscular Volume 89.4 fL (81-100); NEUTROPHILS % (AUTO) 68.7 % (40-74); Platelet Count 224 bil/L (150-400)
[2017-06-01 14:50] LABS: TROPONIN T 0.017 ug/L (0.0-0.011)
--- NOTE | 2017-06-01 15:06 | DRSVH ---
PROCEDURE: CT BRAIN WITHOUT CONTRAST ([id number]) INDICATIONS: head trauma TECHNIQUE: Noncontrast 4.5 mm thick angled axial sections acquired from the foramen magnum to the vertex, with c oronal reformats. COMPARISON: MRI brain 09/17/2016 FINDINGS: Image quality: Excellent. CSF spaces: Basal cisterns are patent. No extra-axial fluid collections. The ventricles are symmet siria in size and shape. Brain: There is an area of cortical contusion over the frontal lobes bilaterally. No associated epid ural or subdural hematoma. No intracranial masses. There is cerebral volume loss for age, with resultant ventricular and sulca l prominence. There are periventricular and deep white matter chronic small vessel ischemic changes. There is intracranial internal carotid artery atherosclerosis. Skull and face: Calvarium and visualized facial bones appear intact, without suspicious lesions. Sinuses: Visualized sinuses and mastoids are clear. IMPRESSION: 1. Bilateral frontal lobe cortical contusions. No associated mass effect or subdural hematoma. No un derlying skull fracture. 2. Age-related atrophy and mild chronic deep white matter small vessel ischemic change. Dictated by: Iam Alvarado M.D. on 06/01/2017 at 14:57 Approved by: Iam Alvarado M.D. on 06/01/2017 at 15:03
--- NOTE | 2017-06-01 15:11 | DRSVH ---
PROCEDURE: X-RAY CHEST, TWO VIEWS ([id number]) INDICATIONS: history of pneumonia, fall TECHNIQUE: 2 views of the chest were acquired. COMPARISON: 05/08/2017 FINDINGS: Surgical changes and devices: Median sternotomy with CABG Lungs and pleura: No pleural effusions or pneumothorax. Right lung field is clear. Ill-defined left retrocardiac density is unchanged. No apparent pleural effusion on lateral view.. Mediastinum: Mediastinal contours are normal. Heart size is normal. Atheromatous aorta. Moderate hi atal hernia. Bones and chest wall: No suspicious bony abnormalities. Soft tissues appear unremarkable. IMPRESSION: 1. No acute cardiopulmonary abnormality. 2. Atheromatous vascular disease status post CABG. 3. Ill-defined density at the left base medially is unchanged , possible atelectasis secondary to adj acent moderate hiatal hernia. Possibility of left lower lobe pneumonia cannot be excluded. Dictated by: Iam Alvarado M.D. on 06/01/2017 at 15:04 Approved by: aIm Alvarado M.D. on 06/01/2017 at 15:09
[2017-06-01 17:03] VITALS: BP 187/73; PULSE 63; RESP 18; O2SAT 98
== END 2017-06-01 17:04 | disposition home or self-care (01) ==
LOC: SED 13:03
DX: S06.2X0A Diffuse traumatic brain injury without loss of consciousness, initial encounter (principal); S01.01XA Laceration without foreign body of scalp, initial encounter; W01.198A Fall on same level from slipping, tripping and stumbling with subsequent striking against other object, initial encounter; Y93.89 Activity, other specified; Y92.9 Unspecified place or not applicable; Y99.8 Other external cause status; I25.10 Atherosclerotic heart disease of native coronary artery without angina pectoris; K21.9 Gastro-esophageal reflux disease without esophagitis; E78.5 Hyperlipidemia, unspecified; I10 Essential (primary) hypertension; Z88.2 Allergy status to sulfonamides; Z88.8 Allergy status to other drugs, medicaments and biological substances; Z88.5 Allergy status to narcotic agent; Z95.5 Presence of coronary angioplasty implant and graft; Z95.1 Presence of aortocoronary bypass graft; Z87.891 Personal history of nicotine dependence